=== PATIENT | male | born 1985 | race Two or more races ===

== ENCOUNTER 2016-09-22 01:20 | Emergency (ER) | payer SELFPAY ==
[~2016-09-22] VITALS: Ht 177.8 cm; Wt 70.3 kg
[2016-09-22 01:25] VITALS: BP 180/103
[2016-09-22] MEDS ORDERED: traMADol 50 MG TABLET PO ONE (01:45)
[2016-09-22] MEDS ORDERED: IBUPROFEN 600 MG TABLET. PO ONE (01:45)
[2016-09-22] MEDS ORDERED: CEPHALEXIN 250 MG CAPSULE. PO ONE (01:45)
[2016-09-22] MEDS ORDERED: CEPH-264 PO (01:47)
[2016-09-22] MEDS ORDERED: IBUP-1007 PO (01:47)
[2016-09-22] MEDS ORDERED: TRAM-48 PO (01:47)
--- NOTE | 2016-09-22 01:48 | PHYS DOC ---
Past Medical History Past Medical History: Other Additional Past Medical Histor: ADD, ADHD Past Surgical History: No Surgical History Alcohol Use: Occasionally Drug Use: Marijuana Adult General Chief Complaint Chief Complaint: DENTAL PROBLEM HPI HPI Patient is a 30 year old gentleman with no past medical history who presents today complaining of dental pain for 3 weeks. Patient reports she was on Procardia to see a dentist tomorrow the pain gets too severe so he came to the ER. Patient denies any history of hypertension diabetes liver longer kidney pals. Patient reports he smokes marijuana but does not smoke tobacco or drink alcohol. Patient has any fevers shakes chills nausea vomiting diarrhea chest pain shortness of breath cough cold or runny nose. Patient's ER physical exam is significant for tenderness to palpation to his right upper pre-incisors there is mild erythema around the gumline. There is no fluctuance or palpable abscess no trismus Review of systems: Constitutional: fever andr chills [] Eyes: Denies change in visual acuity, redness, or eye pain [] All other review systems are negative except as documented in the history of present illness portion. Physical exam: Constitutional: Well developed, well nourished, no acute distress, non-toxic appearance. [] HENT: Normocephalic, atraumatic, bilateral external ears normal, oropharynx moist, no oral exudates, nose normal. [] Eyes: PERRLA, EOMI, conjunctiva normal, no discharge. [] Neck: Normal range of motion, no tenderness, supple, no stridor. [] Cardiovascular:Heart rate regular rhythm, Lungs & Thorax: Bilateral breath sounds clear to auscultation [] Abdomen: Bowel sounds normal, soft, no tenderness, no masses, no pulsatile masses. [] Skin: Warm, dry, no erythema, no rash. [] Back: No tenderness, no CVA tenderness. [] Extremities: No tenderness, no cyanosis, no clubbing, ROM intact, no edema. [] Neurologic: Alert and oriented X 3, normal motor function, normal sensory function, no focal deficits noted. [] Psychologic: Affect normal, judgement normal, mood normal. [] Assessment and plan Dental pain most likely secondary to microabscess. Patient be sent home with Keflex Ultram and ibuprofen and instructed to follow-up with a dentist in the next 24-48 hours. Allergies Allergies Allergies Coded Allergies Type Severity Reaction Last Updated Verified No Known Drug Allergies 09/22/16 No Current Patient Data Vital Signs Vital Signs Date Time Temp Pulse Resp B/P (MAP) Pulse Ox O2 Delivery O2 Flow Rate FiO2 09/22/16 01:25 98.3 81 18 97 Room Air 98.3 EKG EKG [] Radiology/Procedures Radiology/Procedures [] Course & Med Decision Making Course & Med Decision Making Pertinent Labs and Imaging studies reviewed. (See chart for details) [] Dragon Disclaimer Dragon Disclaimer This electronic medical record was generated, in whole or in part, using a voice recognition dictation system. Departure Departure Impression: Primary Impression: Toothache Additional Impression: Dental caries Disposition: HOME, SELF-CARE Condition: IMPROVED Patient Instructions: Toothache-Brief Additional Instructions: Follow-up with your dentist or local dentist in the morning Scripts Tramadol Hcl (ULTRAM) 50 Mg Tablet 1 TAB PO Q6HRS, #10 TAB Prov: PATRICIA FORD MD 09/22/16 Cephalexin (KEFLEX) 500 Mg Capsule 500 MG PO QID for 10 Days, CAP Prov: PATRICIA FORD MD 09/22/16 Ibuprofen (IBUPROFEN) 600 Mg Tablet 600 MG PO PRN Q6HRS Y for PAIN, #20 TAB Prov: PATRICIA FORD MD 09/22/16 Problem Qualifiers PATRICIA FORD MD Sep 22, 2016 01:48
== END 2016-09-22 02:02 | disposition home or self-care (01) ==
LOC: ER 01:20
DX: K02.9 Dental caries, unspecified (principal); F90.9 Attention-deficit hyperactivity disorder, unspecified type; F12.10 Cannabis abuse, uncomplicated
CPT/HCPCS: 99284

== ENCOUNTER 2019-02-07 13:42 | Emergency (ER) | payer SELFPAY ==
[~2019-02-07] VITALS: Ht 177.8 cm; Wt 81.6 kg
[~2019-02-07 13:42] MED LIST: CEPH-264 PO; IBUP-1007 PO; TRAM-48 PO
[2019-02-07 14:21] VITALS: BP 139/75
[2019-02-07] MEDS ORDERED: IBUPROFEN 400 MG TABLET. PO ONE (14:30)
[2019-02-07 14:47] LABS: INFLUENZA A PATIENT NEGATIVE (NEGATIVE); INFLUENZA B PATIENT NEGATIVE (NEGATIVE)
--- NOTE | 2019-02-07 14:49 | PHYS DOC ---
Past Medical History Past Medical History: Other Additional Past Medical Histor: ADD, ADHD Past Surgical History: Other Additional Past Surgical Histo: RIGHT ANKLE Alcohol Use: Occasionally Drug Use: Marijuana Adult General Chief Complaint Chief Complaint: COUGH HPI HPI Patient is a 33 year old male patient with history of ADD who presents with feeling of cough. Patient complaining of productive cough for 5 days with green sputum, nasal congestion, sore throat, headache and myalgia, fever and chills and diarrhea that didn't get better with [id number] medication. Patient denies sick contact, vomiting, focal neuro deficit, smoking cigarettes. Review of Systems Review of Systems Constitutional: Reports fever and chills Eyes: Denies change in visual acuity, redness, or eye pain [] HENT: Reports nasal congestion and sore throat Respiratory: Reports cough and shortness of breath Cardiovascular: No additional information not addressed in HPI [] GI: Denies abdominal pain, nausea, vomiting, bloody stools, reports diarrhea [] : Denies dysuria or hematuria [] Musculoskeletal: Denies back pain or joint pain [] Integument: Denies rash or skin lesions [] Neurologic: Denies headache, focal weakness or sensory changes [] Endocrine: Denies polyuria or polydipsia [] All other systems were reviewed and found to be within normal limits, except as documented in this note. Current Medications Current Medications Current Medications Medications (Trade) Dose Ordered Sig/Gini Start Time Stop Time Status Last Admin Dose Admin Ibuprofen (Motrin) 800 mg 1X ONCE 02/07/19 14:30 02/07/19 14:31 DC 02/07/19 14:37 800 MG Allergies Allergies Allergies Coded Allergies Type Severity Reaction Last Updated Verified Penicillins Allergy Unknown Rash 09/22/16 Yes amoxicillin Allergy Unknown Rash 09/22/16 Yes Physical Exam Physical Exam Constitutional: Well developed, well nourished, mild distress, non-toxic appearance, temperature 102.4. [] HENT: Normocephalic, atraumatic, bilateral external ears normal, oropharynx moist, pharyngeal erythema and edema, no oral exudates, nose normal. [] Eyes: PERRLA, EOMI, conjunctiva normal, no discharge. [] Neck: Normal range of motion, no tenderness, supple, no stridor. [] Cardiovascular: Tachycardia, no murmur [] Lungs & Thorax: Bilateral breath sounds clear to auscultation [] Abdomen: Bowel sounds normal, soft, no tenderness, no masses, no pulsatile masses. [] Skin: Warm, dry, no erythema, no rash. [] Back: No tenderness, no CVA tenderness. [] Extremities: No tenderness, no cyanosis, no clubbing, ROM intact, no edema. [] Neurologic: Alert and oriented X 3, normal motor function, normal sensory function, no focal deficits noted. [] Psychologic: Affect normal, judgement normal, mood normal. [] Current Patient Data Vital Signs Vital Signs Date Time Temp Pulse Resp B/P (MAP) Pulse Ox O2 Delivery O2 Flow Rate FiO2 02/07/19 14:21 102.4 134 22 139/75 (96) 97 Room Air 102.4 Lab Values Laboratory Tests Test 02/07/19 14:06 Influenza Type A Antigen Negative (NEGATIVE) Influenza Type B Antigen Negative (NEGATIVE) EKG EKG [] Radiology/Procedures Radiology/Procedures [][facility] [address] [place] [address] IMAGING REPORT Signed PATIENT: SAGRARIO SONG DACCOUNT: [id number] : 1985 LOCATION: ER AGE: 33 SEX: M EXAM STATUS: REG ER ORD. PHYSICIAN: JING BROWN MD REASON: fever and productive cough PROCEDURE: CHEST PA & LATERAL EXAM: Chest, 2 views. HISTORY: Fever and productive cough. COMPARISON: None. FINDINGS: 2 views of the chest are obtained. There is no infiltrate, pleural effusion or pneumothorax. The heart is normal in size. IMPRESSION: No acute pulmonary finding. Electronically signed by: Evelyn Frye MD (02/07/2019 3:27 PM) [place] [id number] DICTATED and SIGNED BY: EVELYN FRYE MD DATE: 02/07/19 1527 Course & Med Decision Making Course & Med Decision Making Pertinent Labs and Imaging studies reviewed. (See chart for details) discharge: I've spoken with the patient and/or caregivers. I've explained the patient's condition, diagnosis and treatment plan based on information available to me at this time. I've answered the patient's and/or caregivers questions and addressed any concerns. The patient and/or caregivers have a good understanding the patient's diagnosis, condition and treatment plan as can be expected at this point. Vital signs have been stabilized. The patient's condition is stable for discharge from the emergency department. The patient will pursue further outpatient evaluation with her primary care provider or other designated consulting physician as outlined in the discharge instructions. Patient and/or caregivers are agreeable to this plan of care and follow-up instructions have been explained in detail. The patient and/or caregivers have received these instructions in written format and expressed understanding of these discharge instructions. The patient and her caregivers are aware that if any significant change in condition or worsening of symptoms should prompt him to immediately return to this of the closest emergency department. If an emergent department is not readily available I would encourage him to call 911. Orestes Disclaimer Orestes Disclaimer This electronic medical record was generated, in whole or in part, using a voice recognition dictation system. Departure Departure Impression: Primary Impression: Acute upper respiratory infection Additional Impressions: Fever Acute bronchitis Disposition: HOME, SELF-CARE (at 1514) Condition: IMPROVED Referrals: NO PCP (PCP) Patient Instructions: Acute Bronchitis, Fever, Adult, Upper Respiratory Infection, Adult Additional Instructions: Drink plenty of liquids Follow-up with your primary care physician in 3-5 days Return to ER if not getting better Thank you for visiting [facility]. We appreciate you trusting us with your care. If any additional problems come up don't hesitate to return to visit us. Please follow up with your primary care provider so they can plan a dditional care if needed and know about the problem that you had. If symptoms worsen come back to the Emergency Department. Any concerning symptoms that start such as chest pain, shortness of air, weakness or numbness on one side of the body, running high fevers or any other concerning symptoms return to the ER. Scripts Benzonatate (TESSALON PERLE) 100 Mg Capsule 1 CAP PO TID for cough, #21 CAP Prov: JING BROWN MD 02/07/19 Hydrocodone/Apap 5-325 (NORCO 5-325 TABLET) 1 Each Tablet 1 TAB PO PRN Q6HRS PRN for PAIN, #10 TAB 0 Refills Prov: JING BROWN MD 02/07/19 Amoxicillin (AMOXICILLIN) 500 Mg Capsule 1 CAP PO Q8HRS for infection, #30 CAP Prov: JING BROWN MD 02/07/19 Problem Qualifiers Additional Impressions: Fever Fever type: unspecified Qualified Codes: R50.9 - Fever, unspecified Acute bronchitis Bronchitis organism: unspecified organism Qualified Codes: J20.9 - Acute bronchitis, unspecified JING BROWN MD Feb 07, 2019 14:49
[2019-02-07] MEDS ORDERED: BENZ100C PO (15:19)
[2019-02-07] MEDS ORDERED: HYDR-3164 PO (15:19)
[2019-02-07] MEDS ORDERED: AMOX500C PO (15:19)
--- NOTE | 2019-02-07 15:29 | RAD ---
EXAM: Chest, 2 views. HISTORY: Fever and productive cough. COMPARISON: None. FINDINGS: 2 views of the chest are obtained. There is no infiltrate, pleural effusion or pneumothorax. The heart is normal in size. IMPRESSION: No acute pulmonary finding. Electronically signed by: Evelyn Frye MD (02/07/2019 3:27 PM) [facility]
== END 2019-02-07 15:34 | disposition home or self-care (01) ==
LOC: ER 13:42
DX: J06.9 Acute upper respiratory infection, unspecified (principal); J02.9 Acute pharyngitis, unspecified; R50.9 Fever, unspecified; R19.7 Diarrhea, unspecified; R51 Headache; F12.90 Cannabis use, unspecified, uncomplicated; F90.9 Attention-deficit hyperactivity disorder, unspecified type; Z98.890 Other specified postprocedural states; Z88.0 Allergy status to penicillin; Z88.1 Allergy status to other antibiotic agents
CPT/HCPCS: 71046; 87804; 99285

== ENCOUNTER 2019-03-05 07:48 | Emergency (ER) | payer SELFPAY ==
[~2019-03-05] VITALS: Ht 177.8 cm; Wt 81.0 kg
[~2019-03-05 07:48] MED LIST changes: +AMOX500C PO; +BENZ100C PO; +HYDR-3164 PO
[2019-03-05 07:58] VITALS: BP 158/100
[2019-03-05] MEDS ORDERED: IBUP-1060 PO (08:29)
[2019-03-05] MEDS ORDERED: HYDR-3164 PO (08:29)
[2019-03-05] MEDS ORDERED: AMOX500C PO (08:29)
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
== END 2019-03-05 08:39 | disposition home or self-care (01) ==
LOC: ER 07:48
DX: S01.551A Open bite of lip, initial encounter (principal); R60.9 Edema, unspecified; F90.9 Attention-deficit hyperactivity disorder, unspecified type; F12.90 Cannabis use, unspecified, uncomplicated; Z98.890 Other specified postprocedural states; W50.3XXA Accidental bite by another person, initial encounter; Y93.89 Activity, other specified; Y92.89 Other specified places as the place of occurrence of the external cause; Y99.8 Other external cause status
CPT/HCPCS: 99283

== ENCOUNTER 2019-03-07 17:22 | Emergency (ER) | payer SELFPAY ==
[~2019-03-07] VITALS: Ht 177.8 cm; Wt 81.8 kg
[~2019-03-07 17:22] MED LIST changes: +IBUP-1060 PO
[2019-03-07 18:11] LABS: BASO % 0 % (0-3); EOS % 0 % (0-3); HEMATOCRIT 50.2 % (39.0-53.0); HEMOGLOBIN 17.7 g/dL (13.0-17.5); LYMPH # 1.9 x10^3/uL (1.0-4.8); LYMPH % 23 % (24-48); MEAN CORPUSCULAR HEMOGLOBIN 34 pg (25-35); MEAN CORPUSCULAR HGB CONC 35 g/dL (31-37); MEAN CORPUSCULAR VOLUME 96 fL (79-100); MONO % 12 % (0-9); NEUT # 5.3 x10^3/uL (1.8-7.7); NEUT % 64 % (31-73); PLATELET COUNT 232 x10^3/uL (140-400); RED BLOOD COUNT 5.21 x10^6/uL (4.30-5.70); RED CELL DISTRIBUTION WIDTH 14.3 % (11.5-14.5); WHITE BLOOD COUNT 8.2 x10^3/uL (4.0-11.0)
[2019-03-07 18:20] LABS: PROTHROMBIN TIME PATIENT 13.3 SEC (11.7-14.0)
[2019-03-07 18:24] LABS: CALCIUM 9.3 mg/dL (8.5-10.1); GFR 86.6; POTASSIUM 3.8 mmol/L (3.5-5.1)
[2019-03-07 18:30] LABS: ALBUMIN 3.5 g/dL (3.4-5.0); ALBUMIN/GLOBULIN RATIO 0.8 (1.0-1.7); TOTAL BILIRUBIN 0.7 mg/dL (0.2-1.0); TOTAL PROTEIN 7.9 g/dL (6.4-8.2)
[2019-03-07] MEDS: LIDO:MAALOX 1:1 20 ML SINGLE DOSE. SWSW ONE (18:39)
--- NOTE | 2019-03-07 18:39 | RAD ---
PORTABLE CHEST 1V Clinical History: Chest pain Technique: AP view of the chest was obtained at 03/07/2019 6:03 PM. Comparison: February 07, 2019. Findings: The cardiomediastinal silhouette is normal. The pulmonary vasculature is normal. The lungs and pleural margins are clear. Impression: No evidence of an acute cardiopulmonary process. Electronically signed by: Roderick Ulloa III, MD (03/07/2019 6:36 PM) [facility]
[2019-03-07 18:40] VITALS: BP 137/97
[2019-03-07] MEDS: NITROGLYCERIN SUBLINGUAL 0.4 MG BOTTLE OF 25. SL PRN (18:40)
[2019-03-07] MEDS: ASPIRIN 325 MG TABLET PO ONE (18:40)
[2019-03-07 18:51] LABS: CREATINE KINASE 33 U/L (39-308)
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
[2019-03-07] MEDS ORDERED: OMEP20CA16 PO (19:10)
--- NOTE | 2019-03-08 06:54 | EKG ---
[facility] [address] [place] [address] Test Date: 2019-03-07 Test Time: 17:41:55 Pat Name: SAGRARIO SONG Department: Room: Gender: Community Organization Director: : 1985 Requested By: JAMIA WISE Order Number: [id number] Reading MD: Measurements Intervals [place] Rate: 130 P: 67 OR: 118 QRS: 87 QRSD: 72 T: 21 QT: 274 QTc: 409 Interpretive Statements SINUS TACHYCARDIA OTHERWISE NORMAL ECG RI6.01 No previous ECG available for comparison
== END 2019-03-07 19:20 | disposition home or self-care (01) ==
LOC: ER 17:22
DX: K21.9 Gastro-esophageal reflux disease without esophagitis (principal); R07.89 Other chest pain; F90.9 Attention-deficit hyperactivity disorder, unspecified type; F12.90 Cannabis use, unspecified, uncomplicated; F10.10 Alcohol abuse, uncomplicated; Z79.82 Long term (current) use of aspirin; Z88.0 Allergy status to penicillin
CPT/HCPCS: 36415; 71045; 80053; 82553; 83735; 83880; 84443; 84484; 85025; 85610; 93005; 99285